=== PATIENT | male | born 1965 | race Caucasian/White ===

== ENCOUNTER → 2016-11-21 08:10 | Outpatient (CLI) | payer OTHER ==
[2015-06-24 08:24] VITALS: BMI 29.0
[~2016-11-21 08:10] MED LIST: ALTACE5 MG PO; ASPIRIN325 MG PO; BAYER CHEWABLE81 MG PO; FISH OIL 1,0001 CA1 PO; FISH OIL 1,2001 CAP PO; HYDROCODONE-APA1 TAB PO; LISINOPRIL2.5 MG PO; LOW DOSE ASPIRI81 M1 PO; MULTI-DAY VITAM1 TAB PO; PERSANTINE50 MG PO; PRAVACHOL20 MG PO; PRILOSEC20 MG PO
[2016-11-21 09:13] LABS: ALBUMIN 3.8 g/dL (3.4-5.0); BILIRUBIN - DIRECT 0.15 mg/dL (0.00-0.30); BILIRUBIN - INDIRECT 0.82 mg/dL (0.00-1.00); BILIRUBIN - TOTAL 0.97 mg/dL (0.2-1.3); PROTEIN - SERUM 6.9 g/dL (6.4-8.2)
== END | disposition home or self-care (01) ==
LOC: D.US 10-24 09:00 → D.LAB 10-24 09:30 → D.US 08:10
PROVIDERS: Internal Medicine Gastroenterology
DX: K76.0 Fatty (change of) liver, not elsewhere classified (principal)

== ENCOUNTER → 2017-11-24 08:41 | Outpatient (CLI) | payer OTHER ==
[2015-06-24 08:24] VITALS: BMI 29.0
[2017-11-24 09:48] LABS: ALBUMIN 3.8 g/dL (3.4-5.0); BILIRUBIN - DIRECT 0.15 mg/dL (0.00-0.30); BILIRUBIN - INDIRECT 0.66 mg/dL (0.00-1.00); BILIRUBIN - TOTAL 0.81 mg/dL (0.2-1.3); PROTEIN - SERUM 7.1 g/dL (6.4-8.2)
== END | disposition home or self-care (01) ==
LOC: D.US 08:41
PROVIDERS: Internal Medicine Gastroenterology
DX: K76.0 Fatty (change of) liver, not elsewhere classified (principal)

== ENCOUNTER 2018-09-20 11:02 | Observation (INO) | payer OTHER ==
[~2018-09-20] VITALS: Ht 170.2 cm; Wt 81.8 kg
--- NOTE | ~2018-09-20 | EC ---
PATIENT:EVETTE SPEARS DATE OF SERVICE: 09/20/18 SEX: M MEDICAL RECORD: [id number] DATE OF : [birth year] LOCATION:[id number] AGE OF PATIENT: 53 ADMISSION DATE: 09/20/18 REFERRING PHYSICIAN: INTERPRETING PHYSICIAN: BECKY GUERRA MD ECHOCARDIOGRAM REPORT ECHO CHARGES 4 ECHO COMPLETE Date: 09/21/18 CLINICAL DIAGNOSIS: TIA/EDEMA HX OF HTN ECHOCARDIOGRAPHIC MEASUREMENTS (adult normal given) AC root (d.<3.7cm) 3.6 cm LV Septum d (<1.2 cm> 1.5 cm Valve Excursion 1.9 cm LV Septum (systole) 1.6 cm Left Atria (s.<4.0cm> 3.4 cm LVPW d(<1.2cm) 1.4 cm RV (d.<2.3cm) 3.7 cm LVPW (sytole) 1.6 cm LV diastole(<5.6CM) 4.3 cm MV E-F(>70mm/sec) cm LV systole 2.7 cm LVOT Diameter 1.8 cm MV exc.(>10mm) 1.2 cm Est.ejection fraction (50-75%) % DOPPLER: LVIT cm/sec A 61.0 cm/sec E 49.0 cm/sec LA cm/sec RVSP 14 mmHg LVOT 93 cm/sec AOP1/2T m/s Asc. Ao 121 cm/sec RVOT 81 cm/sec RA cm/sec PA 120 cm/sec AV Gradient Peak mmHg AV Mean mmHg AV Area 1.8 cm MV Gradient Peak 2.11 mmHg MV Mean 0.90 mmHg MV Area cm COMMENTS: Lead Ramp Agent: Marcos MORALES Personal Chef: 1 Dr. Guerra TAPE# PACS Pericardial Effusion N DATE OF SERVICE: 09/21/2018 PROCEDURE: Echocardiogram. FINDINGS: 1. Left ventricular chamber size is within normal limits. Left ventricular systolic function is normal. Overall ejection fraction estimated at 60%. 2. Left atrium, right atrium, and right ventricle chamber sizes are within normal limits. 3. Valvular structures have normal structure and motion. ECHOCARDIOGRAM REPORT [id number] EVETTE SPEARS 4. Doppler interrogation reveals no significant valvular insufficiency or stenosis and pulmonary systolic pressure is normal estimated at 14 mmHg. 5. No evidence of pericardial effusion or left ventricular thrombus. TRANSINT:[id number] Voice Confirmation ID: [id number] DOCUMENT ID: [id number] BECKY GUERRA MD at 1031 CC: [id number] DICTATION DATE: 09/21/18 1354 COATER OPERATOR INSULATION BOARD: 09/21/18 1452 DIS IN 09/21/18 [facility] [address] [id number]
[2018-09-20] MEDS ORDERED: BUSPAR10 MG PO (11:17)
[2018-09-20 11:56] LABS: BASOPHILS 0.5 % (0-2); EOSINOPHILS 1.1 % (0-7); HEMOGLOBIN 16.9 g/dL (13.5-17.5); IMMATURE GRANULOCYTES 0.2 % (0-5); MCH 32.3 pg (26.0-34.0); MCHC 35.2 g/dL (31.0-37.0); MCV 91.8 fL (80.0-100.0); MEAN PLATELET VOLUME 8.9 fL (7.4-10.4); MONOCYTES 5.9 % (2-11); NEUTROPHILS 66.3 % (40-80); PLATELET COUNT 213 10x3/uL (130-400); RBC 5.23 10x6/uL (4.20-6.10); RDW 12.3 % (11.5-14.5); WBC 6.5 10x3/uL (4.8-10.8)
[2018-09-20 12:05] LABS: APTT 26.6 SECONDS (22.8-39.4)
[2018-09-20 12:06] LABS: INR 0.91 (0.85-1.17); PROTIME 11.9 SECONDS (11.6-15.0)
[2018-09-20 12:12] LABS: ALBUMIN 4.2 g/dL (3.4-5.0); ALKALINE PHOSPHATASE 58 U/L (46-116); ALT (SGPT) 42 U/L (10-68); BILIRUBIN - TOTAL 1.02 mg/dL (0.2-1.3); CALC OSMOLALITY 281 mosm/kg (275-300); CALCIUM 9.3 mg/dL (8.5-10.1); CARBON DIOXIDE 29.7 mmol/L (21.0-32.0); CHLORIDE - SERUM 104 mmol/L (98-107); GLUCOSE 101 mg/dL (74-106); POTASSIUM - SERUM 4.5 mmol/L (3.5-5.1); SODIUM 141 mmol/L (136-145); UREA NITROGEN 14 mg/dL (7-18); eGFR NON AFRICAN AMERICAN 82 mL/min (90-120)
[2018-09-20 12:22] LABS: CKMB 1.6 U/L (0.0-3.6); CREATINE KINASE 115 UL (21-232); TROPONIN-I 0.018 ng/mL (0.000-0.060)
[2018-09-20 18:30] VITALS: BP 143/74; Ht 170.2 cm; Wt 81.8 kg
[2018-09-21 04:00] VITALS: BP 111/53
[2018-09-21 07:15] LABS: ALBUMIN 3.4 g/dL (3.4-5.0); ALKALINE PHOSPHATASE 51 U/L (46-116); ALT (SGPT) 36 U/L (10-68); BILIRUBIN - TOTAL 0.88 mg/dL (0.2-1.3); CALC OSMOLALITY 278 mosm/kg (275-300); CALCIUM 8.3 mg/dL (8.5-10.1); CARBON DIOXIDE 26.1 mmol/L (21.0-32.0); CHLORIDE - SERUM 104 mmol/L (98-107); CREATINE KINASE 219 UL (21-232); CREATININE - SERUM 1.1 mg/dL (0.6-1.3); GLUCOSE 98 mg/dL (74-106); POTASSIUM - SERUM 4.9 mmol/L (3.5-5.1); PROTEIN - SERUM 6.5 g/dL (6.4-8.2); SODIUM 139 mmol/L (136-145); TROPONIN-I < 0.017 ng/mL (0.000-0.060); UREA NITROGEN 16 mg/dL (7-18); eGFR NON AFRICAN AMERICAN 74 mL/min (90-120)
[2018-09-21 08:18] VITALS: BP 119/68
[2018-09-21 09:05] LABS: BASOPHILS 0.6 % (0-2); EOSINOPHILS 2.8 % (0-7); HEMATOCRIT 46.1 % (42.0-54.0); HEMOGLOBIN 15.9 g/dL (13.5-17.5); IMMATURE GRANULOCYTES 0.2 % (0-5); LYMPHOCYTES 32.6 % (15-50); MCH 31.6 pg (26.0-34.0); MCHC 34.5 g/dL (31.0-37.0); MCV 91.7 fL (80.0-100.0); MEAN PLATELET VOLUME 9.6 fL (7.4-10.4); NEUTROPHILS 56.8 % (40-80); PLATELET COUNT 227 10x3/uL (130-400); RBC 5.03 10x6/uL (4.20-6.10); RDW 12.7 % (11.5-14.5); WBC 6.5 10x3/uL (4.8-10.8)
[2018-09-21 12:47] VITALS: BP 136/75
[2018-09-21 16:57] VITALS: BP 143/80
== END 2018-09-21 18:28 | disposition home or self-care (01) ==
LOC: D.ER 11:02 → D.EDHOLD 16:18 → D.MS 16:18 → OBSVTIME 16:19 → D.MS 17:37
PROVIDERS: Family Medicine
DX: G45.9 Transient cerebral ischemic attack, unspecified (principal); I10 Essential (primary) hypertension; E78.00 Pure hypercholesterolemia, unspecified; F41.9 Anxiety disorder, unspecified; G47.33 Obstructive sleep apnea (adult) (pediatric)

== ENCOUNTER → 2018-10-24 14:59 | Outpatient (CLI) | payer OTHER ==
[2018-09-20 18:30] VITALS: BMI 28.2
--- NOTE | ~2018-10-24 | ST ---
PATIENT:EVETTE SPEARS MEDICAL RECORD: [id number] SEX: M LOCATION:[facility] ORDER #: ADMISSION DATE: 10/24/18 AGE OF PATIENT: 53 REFERRING PHYSICIAN: INTERPRETING PHYSICIAN: BECKY NIETO MD DATE OF SERVICE: 10/24/2018 Exercise Stress Test INDICATIONS: Shortness of breath, dyspnea on exertion. DESCRIPTION OF THE PROCEDURE: He was exercised on standard Mat protocol for 6 minutes 30 seconds achieving greater than 85% of max target heart rate response, but no EKG changes, no dysrhythmias, no anginal chest discomfort. OVERALL IMPRESSION: Negative for inducible ischemia at adequate cardiac workload. TRANSINT:[id number] Voice Confirmation ID: [id number] DOCUMENT ID: [id number] BECKY NIETO MD at 0842 CC: [id number] DICTATION DATE: 10/25/18 1205 RESEARCH FOOD TECHNOLOGIST: 10/26/18 0030 DEP CLI 10/24/18 [id number] [place] [address]
[~2018-10-24 14:59] MED LIST changes: +BUSPAR10 MG PO
== END | disposition home or self-care (01) ==
LOC: D.HCCARDIO 14:59
DX: R06.09 Other forms of dyspnea (principal)

== ENCOUNTER → 2018-10-26 07:49 | Outpatient (CLI) | payer OTHER ==
[2018-09-20 18:30] VITALS: BMI 28.2
== END | disposition home or self-care (01) ==
LOC: D.CT 07:49
DX: I65.23 Occlusion and stenosis of bilateral carotid arteries (principal)

== ENCOUNTER → 2018-11-30 08:47 | Outpatient (CLI) | payer OTHER ==
[2018-09-20 18:30] VITALS: BMI 28.2
[2018-11-30 10:13] LABS: ALBUMIN 3.6 g/dL (3.4-5.0); BILIRUBIN - DIRECT 0.16 mg/dL (0.00-0.30); BILIRUBIN - INDIRECT 0.64 mg/dL (0.00-1.00); BILIRUBIN - TOTAL 0.8 mg/dL (0.2-1.3); PROTEIN - SERUM 6.9 g/dL (6.4-8.2)
== END | disposition home or self-care (01) ==
LOC: D.US 08:47
PROVIDERS: Internal Medicine Gastroenterology
DX: K76.0 Fatty (change of) liver, not elsewhere classified (principal)

== ENCOUNTER → 2021-02-18 08:23 | Outpatient (CLI) | payer OTHER ==
[2018-09-20 18:30] VITALS: BMI 28.2
[2021-02-18 09:12] LABS: ALBUMIN 3.7 g/dL (3.4-5.0); BILIRUBIN - DIRECT 0.16 mg/dL (0.00-0.30); BILIRUBIN - INDIRECT 0.73 mg/dL (0.00-1.00); BILIRUBIN - TOTAL 0.89 mg/dL (0.2-1.3)
== END | disposition home or self-care (01) ==
LOC: D.US 08:15
PROVIDERS: ATTEND Internal Medicine Gastroenterology
DX: K76.0 Fatty (change of) liver, not elsewhere classified (principal)